=== PATIENT | female | born 1980 | race Caucasian/White ===

== ENCOUNTER → 2016-06-28 | Day surgery (SDC) | payer BC ==
[2016-06-25 10:23] VITALS: Ht 175.3 cm; Wt 177.3 kg
[~2016-06-28] VITALS: Ht 175.3 cm; Wt 177.3 kg
[~2016-06-28] MED LIST: 500ML BSS 0.3ML EPI 1:1000PF IRRIG ONE; ACETAMINOPHEN 325 MG TAB PO PRN; AMVISC PLUS 0.8ML SYRINGE INT OCU ONE; ATOR-24 PO; ATROPINE SULFATE 0.1 MG/ML 5ML SYR IV PRN; BCPILLS PO; BRIMONIDINE TART 0.2% OP SOLN PER DROP CHARGE ONE; BSS FLUSH ONE; CYCL10TA6 PO; ENDOCOAT 0.85ML SYRINGE INT OCU ONE; EpINEphrine INJ 1MG/ML AMP 1 MG/ML AMP ONE; FEXO1TAB46 PO; FRCT/ PO; HYDR25TA4 PO; LACTATED RINGER'S 1000ML 500 ML IV SCH; LEVO25TA5 PO; LIDOCAINE 4% OP SOLN DROP CHARGE ONE; LIDOCAINE 4% OP SOLN DROP CHARGE OPL SCH; LIDOCAINE HCL 1% MPF 2 ML VIAL ONE; LORA-741 PO; METO1TAB69 PO; MIDAZOLAM HCL 1 MG/ML 2ML VIAL ONE; MOXIFLOXACIN OPH SOLN PER DROP CHARGE ONE; OMEP40CA41 PO; OXYC1TAB3 PO; POVIDONE-IODINE OP SOLN 30 ML BTL ONE; PROM25TA16 PO; PROPARACAINE 0.5% OP SOLN PER DROP CHARGE OPL SCH; TOBRAMYCIN/DEXAMETHASONE OPH OINT PER APPLN CHARGE ONE
[2016-06-28] MEDS: TROPICAMIDE 1% OP SOLN PER DROP CHARGE OPL SCH ×2 (07:31→07:36)
[2016-06-28] MEDS: CYCLOPENTOLATE HCL 1% OP SOLN PER DROP CHARGE OPL SCH ×2 (07:32→07:37)
[2016-06-28] MEDS: KETOROLAC 0.5% OP SOLN PER DROP CHARGE OPL SCH ×2 (07:33→07:38)
[2016-06-28] MEDS: MOXIFLOXACIN OPH SOLN PER DROP CHARGE OPL SCH ×2 (07:34→07:44)
[2016-06-28] MEDS: PHENYLEPHRINE HCL 2.5% OP SOLN PER DROP CHARGE OPL SCH ×2 (07:35→07:40)
--- NOTE | 2016-06-28 07:36 | History & Physical Bridge - [place] ---
H&P Re-Evaluation Bridge Note: I have examined the patient, reviewed the History & Physical and in the interval since the performance of the History & Physical I have noted the following changes of clinical significance: No changes noted
--- NOTE | 2016-06-28 08:30 | Discharge Instructions-SurgCtr ---
Discharge Instructions Date of Service Jun 28, 2016. Visit Reason for Visit: Cataract Left Eye Discharge Discharge Diagnosis / Problem: cataract left eye Discharge Goals Goal(s): Improve function Activity Recommendations Activity Limitations: per Instructions/Follow-up section Lifting Limitations: no more than 5 pounds Anesthesia . Post Anesthesia Instructions: If you have had General Anesthesia or IV Sedation: * Do not drive today. * Resume driving when surgeon permits. * Do not make important decisions or sign legal documents today. * Call surgeon for: 1. Temperature elevations greater than 101 degrees F. 2. Uncontrollable pain. 3. Excessive bleeding. 4. Persistent nausea and vomiting. 5. Medication intolerance (nausea, vomiting or rash). * For nausea and vomiting use only clear liquids such as: tea, soda, bouillon until nausea subsides, then gradually increase diet as tolerated. * If you have any concerns or questions, call your surgeon's office. If physician is unavailable and it is an emergency, call 911 or go to the nearest emergency room. . Instructions / Follow-Up Instructions / Follow-Up ACTIVITY RECOMMENDATIONS: * Light activities * You may walk outside, read, watch television. * Mild irritation and blurred vision are common for the first few days, redness around the white part of the eye is common. MEDICATIONS: Resume previous medications unless instructed otherwise by your surgeon. Eye drops (today and tomorrow): Cipro - one drop in operative eye every 2 hours while awake Prednisolone 1% - one drop in operative eye every 2 hours while awake Ketorolac - one drop in operative eye every 2 hours while awake SPECIAL CARE INSTRUCTIONS: * If any problems or concerns, please call Dr. Burgess's office at . * Keep plastic shield taped over eye to sleep at night. * Keep plastic shield taped over eye except to administer eye drops. * Keep plastic shield on until office visit the following day. FOLLOW UP VISIT: Follow-up with Dr. Burgess in the [place] office as scheduled. If not already scheduled, please call the office at . Diet Recommendations Home Diet: resume previous diet Procedures Procedures Performed: Left Cataract Phacoemulsification With Intraocular Lens Implant Pending Studies Studies pending at discharge: no Medical Emergencies . Who to Call and When: Medical Emergencies: If at any time you feel your situation is an emergency, please call 911 immediately. . Non-Emergent Contact Non-Emergency issues call your: Lawyer Criminal . . "Provider Documentation" section prepared by Gianfranco Burgess.
--- NOTE | 2016-06-28 08:31 | [facility] Post Operative Brief Note ---
Immediate Operative Summary Operative Date Jun 28, 2016. Pre-Operative Diagnosis Cataract Left Eye Post-Operative Diagnosis Same Procedure(s) Performed Left Cataract Phacoemulsification With Intraocular Lens Implant Surgeon Dr. Burgess Gift Consultant Surgeon(s) None Estimated Blood Loss 0 Findings psc cataract left eye Specimens None Complication(s) None Disposition Recovery Room / PACU
[2016-06-28 08:32] VITALS: TEMP 36.8
--- NOTE | 2016-06-28 08:34 | Anesthesia Progress Nt - [facility] ---
Anesthesia Post Op Note Date & Time Jun 28, 2016 at 08:34 Vital Signs Pain Intensity: 0 Vital Signs Past 12 Hours Date Time Temp Pulse Resp B/P Pulse Ox O2 Delivery O2 Flow Rate FiO2 06/28/16 07:32 36.8 84 18 152/98 99 Room Air Notes Mental Status: alert / awake / arousable, participated in evaluation Pt Amnestic to Procedure: Yes Nausea / Vomiting: adequately controlled Pain: adequately controlled Airway Patency, RR, SpO2: stable & adequate BP & HR: stable & adequate Hydration State: stable & adequate Anesthetic Complications: no major complications apparent
[2016-06-28 08:55] VITALS: BP 141/82; PULSE 82; O2SAT 96
--- NOTE | 2016-06-28 08:58 | OPERATIVE REPORT ---
DATE OF OPERATION: 06/28/2016 PREOPERATIVE DIAGNOSIS: Posterior subcapsular cataract, left eye. POSTOPERATIVE DIAGNOSIS: Posterior subcapsular cataract, left eye. PROCEDURE: Phacoemulsification cataract extraction with intraocular lens placement, left eye. SURGEON: Dr. Burgess. COMPLICATIONS: None. ESTIMATED BLOOD LOSS: None. ANESTHESIA: Topical with sedation. OPERATION AND FINDINGS: After informed consent was obtained in the holding area the patient was wheeled back to the Operating Room where cardiac monitoring leads and oxygen by nasal cannula was administered by Anesthesia. Gentle IV sedation was given, and the patient's left eye was prepped and draped in usual sterile fashion. A wire lid speculum was placed into the left eye and the operating microscope was swung into position. Using 0.12 forceps and a Supersharp blade a paracentesis port was made 3 o'clock hours away from the 12 o'clock position of patient's left eye. 1% non-preserved Lidocaine was then injected into the anterior chamber for anesthesia. A 2.2 mm keratotome blade was then used to make a shelved clear corneal incision at the 12 o'clock position of her left eye. Amvisc was injected into the anterior chamber and a cystotome and Utrata forceps were used to perform a curvilinear capsulorrhexis. BSS on a hydrodissection cannula was used to hydrodissect the lens nucleus away from the capsular bag. The phacoemulsification handpiece was then used in a stop and chop fashion to remove the lens nucleus. The irrigation and aspiration handpiece was then used to remove the residual cortical material. Amvisc was injected into the capsular bag and anterior chamber and a Bausch \T\ Lomb MX60 20.5 Diopter intraocular lens was injected into the capsular bag. Irrigation and aspiration handpiece was used to remove the residual viscoelastic material. The wounds were hydrated and noted to be watertight. The wire lid speculum was removed from the eye. Vigamox, Brimonidine, and TobraDex ointment were placed on the eye and it was shielded. It should be noted that EndoCoat was used during the case to protect the cornea endothelium. ReSure sealant was placed over the primary incision as well as the paracentesis at the end of the case for extra wound integrity. DISPOSITION: The patient tolerated the procedure well and was wheeled to the post anesthesia care unit in stable condition. I attest to the content of the Intraoperative Record and any orders documented therein. Any exceptions are noted below. I attest to the content of the Intraoperative Record and any orders documented therein. Any exceptio ns are noted below.
== END | disposition home or self-care (01) ==
LOC: X.SURG 06:54
PROVIDERS: ATTEND Ophthalmology
DX: H25.042 Posterior subcapsular polar age-related cataract, left eye (principal); I10 Essential (primary) hypertension; E07.9 Disorder of thyroid, unspecified; E78.00 Pure hypercholesterolemia, unspecified

== ENCOUNTER 2016-09-01 23:56 | Emergency (ER) | payer BC ==
[~2016-09-01] VITALS: Ht 167.6 cm; Wt 190.0 kg
[~2016-09-01 23:56] MED LIST changes: -500ML BSS 0.3ML EPI 1:1000PF IRRIG ONE; -ACETAMINOPHEN 325 MG TAB PO PRN; -AMVISC PLUS 0.8ML SYRINGE INT OCU ONE; -ATROPINE SULFATE 0.1 MG/ML 5ML SYR IV PRN; -BRIMONIDINE TART 0.2% OP SOLN PER DROP CHARGE ONE; -BSS FLUSH ONE; -CYCL10TA6 PO; -ENDOCOAT 0.85ML SYRINGE INT OCU ONE; -EpINEphrine INJ 1MG/ML AMP 1 MG/ML AMP ONE; -LACTATED RINGER'S 1000ML 500 ML IV SCH; -LIDOCAINE 4% OP SOLN DROP CHARGE ONE; -LIDOCAINE 4% OP SOLN DROP CHARGE OPL SCH; -LIDOCAINE HCL 1% MPF 2 ML VIAL ONE; +METO100T44 PO; -METO1TAB69 PO; -MIDAZOLAM HCL 1 MG/ML 2ML VIAL ONE; -MOXIFLOXACIN OPH SOLN PER DROP CHARGE ONE; -OXYC1TAB3 PO; -POVIDONE-IODINE OP SOLN 30 ML BTL ONE; -PROPARACAINE 0.5% OP SOLN PER DROP CHARGE OPL SCH; -TOBRAMYCIN/DEXAMETHASONE OPH OINT PER APPLN CHARGE ONE
[2016-09-02 00:01] VITALS: TEMP 36.7; Ht 167.6 cm; Wt 190.0 kg
[2016-09-02] MEDS ORDERED: HYDROmorphone INJ 1 MG/ML SYR IM STA (00:37)
[2016-09-02] MEDS ORDERED: OXYC1TAB3 PO (01:45)
[2016-09-02] MEDS ORDERED: CYCL10TA6 PO (01:46)
--- NOTE | 2016-09-02 01:46 | EMERGENCY ROOM VISIT NOTE ---
ED Visit Note First contact with patient: 00:12 CHIEF COMPLAINT: Low back pain HISTORY OF PRESENT ILLNESS: This 36-year-old female patient presents to the emergency department ambulatory complaining of pain in the low back which began last week. The patient states that she has a history of chronic low back pain. She has had steroid injections in the back 3 different times in the past 5 years. She states that she has had a gradual onset of worsening low back pain over the past one week. She states the pain has been very severe over the past 2 days. The pain is located in the center of the low back and does not radiate anywhere. She states that occasionally, her feet "fall asleep." She has had significant pain with walking and has been crawling around the house. She denies any numbness or weakness in the legs. The patient notes the pain as sharp and a 10/10. The patient has taken Vicodin for relief of the pain. She states she was previously prescribed this for back and knee pain. The patient denies any loss of control of their bowel or bladder functions. There has been no leg numbness or weakness, and no change in sensation. No nausea or vomiting or abdominal pain. No chest pain or shortness of breath. No dysuria or increased urinary frequency. She denies recent injury to the back. The patient has previously seen Dr. Mayer pain management for her back pain. REVIEW OF SYSTEMS: A review of systems was performed with positives and pertinent negatives listed in the history of present illness. All other systems were reviewed and are negative. ALLERGIES: See EMR MEDICATIONS: See med list PMH: History cholecystectomy SOCIAL HISTORY: The patient lives locally with family. Nonsmoker. PHYSICAL EXAM: VITALS: Vitals are noted on the nurse's note and reviewed by myself. Vital signs stable. GENERAL: This is a 36-year-old morbidly obese female, in no acute distress, nondiaphoretic, well-developed well-nourished. SKIN: The skin was without rashes, erythema, edema, or bruising. Capillary refill less than 2 seconds. NECK: Supple without nuchal rigidity. No cervical spine tenderness. No paraspinous muscle tenderness. HEART: Regular rate and rhythm without murmurs gallops or rubs. LUNGS: Clear to auscultation bilaterally without wheezes, rales or rhonchi. ABDOMEN: Positive bowel sounds x 4. Normal tympanic percussion. Soft, nontender, without masses or organomegaly. Mcadams sign negative. MUSCULOSKELETAL: No muscle atrophy, erythema, or edema noted of the back. There is vague tenderness over the lumbar region. There is no tenderness over the thoracic spine or paraspinous muscles. There are no muscle spasms present. The patient is slow to move around with maximum tenderness with flexion. Negative straight leg raise test. NEURO: Patient was alert and oriented to person place and time. Normal sensation to light and sharp touch. Deep tendon reflexes 2+ in the lower extremities. Dorsalis pedis pulse 2+ bilaterally. Strength 5/5 and equal in the bilateral lower extremities. EMERGENCY DEPARTMENT COURSE: The patient was evaluated as above. There are no neurological findings and nothing to suggest cauda equina syndrome or cord compression. She was treated with 2 mg Dilaudid intramuscularly with significant relief of her pain. The patient was reevaluated and was able to move and sit up without difficulty. I had a lengthy discussion with the patient and her mother regarding her ongoing back pain. I do not feel that imaging will benefit the patient at this time and there is nothing to warrant an emergent MRI. I do feel that the patient should follow-up with pain management, as she had success with injections in the past. I will give her a short course of OxyIR and Flexeril and she was instructed to follow-up with her primary care provider. The [place] prescription drug monitoring program was queried and no red flags were identified. The patient has only received narcotic prescriptions from her primary care provider in the past. The patient was instructed to return here for any worsening or new/concerning symptoms. She verbalized understanding of my assessment and treatment plan and was discharged home in good condition. DIAGNOSIS: Lumbar back pain Problem List Medical Problems: (1) Cholecystectomy Status: Resolved Current/Historical Medications Scheduled Atorvastatin (Lipitor), 40 MG PO QPM Control Pills ( Control Pills), 1 TAB PO QAM Cyclobenzaprine Hcl (Flexeril), 10 MG PO TID Fexofenadine Hcl (Ev), 180 MG PO QAM Hydrochlorothiazide (Hctz), 25 MG PO QAM Levothyroxine Sodium (Levothyroxine Sodium), 1 TAB PO QAM Metoprolol Succ (Toprol Xl) (Toprol-Xl ), 100 MG PO BID Omeprazole (Prilosec), 40 MG PO QAM Scheduled PRN Acetamin/Butalbital/Caffeine (Fioricet), 1-2 TAB PO QID PRN Lorazepam (Ativan), 0.5 MG PO TID PRN Oxycodone Ir (Roxicodone Ir), 1-2 TAB PO Q4H PRN for Pain Promethazine HCl (Promethazine HCl), 25 MG PO TID PRN Allergies Coded Allergies: Iodinated Diagnostic Agents (Verified Allergy, Intermediate, RASH, 06/28/16 ) Azithromycin (Verified Allergy, Mild, RASH, 06/28/16) Chlorpheniramine (Verified Allergy, Mild, DIFFICULTY URINATING, 06/28/16) DIFF. URINATION. NEEDED CATHED Phenylephrine (Verified Allergy, Mild, ., 06/28/16) DIFF. URINATION. NEEDED CATHED Phenylpropanolamine (Verified Allergy, Mild, ., 06/28/16) DIFF. URINATION. NEEDED CATHED Phenyltoloxamine (Verified Allergy, Mild, ., 06/28/16) DIFF. URINATION. NEEDED CATHED Vital Signs Date Time Temp Pulse Resp B/P Pulse Ox O2 Delivery O2 Flow Rate FiO2 09/02/16 01:56 74 20 134/70 95 09/02/16 00:01 36.7 85 20 148/83 98 Room Air Medications Administered Medications (Trade) Dose Ordered Sig/Negin Route Start Time Stop Time Status Last Admin Dose Admin Hydromorphone HCl (Dilaudid Inj) 2 mg NOW STAT IM 09/02/16 00:37 09/02/16 00:39 DC 09/02/16 00:48 2 MG Departure Information Impression Primary Impression: Chronic low back pain Dispostion Home / Self-Care Condition GOOD Prescriptions Cyclobenzaprine Hcl (FLEXERIL) 10 Mg Tab 10 MG PO TID for 5 Days, #15 TAB Prov: Lety Hinds PA-C 09/02/16 Oxycodone Ir (Roxicodone Ir) 5 Mg Tab 1-2 TAB PO Q4H Y for Pain, #24 TAB For Initial Treatment Prov: Lety Hinds PA-C 09/02/16 Referrals Dalton Llanes M.D. (PCP) Patient Instructions [facility] Additional Instructions You have been treated in the Emergency Department for Back Pain. You have received pain medicine in the emergency department which impairs your ability to operate a vehicle. It is illegal for you to drive after receiving these medicines. You have been prescribed Oxy IR to be used for pain control. This is a narcotic medication. You cannot drive or consume alcohol while on this medicine. This medicine should only be used for pain that cannot be controlled with over-the- counter pain medicines. You have been prescribed Flexeril (cyclobenzaprine) 1-2 tabs orally, three times per day. Do NOT exceed 30 mg (6 tabs) per day. Take your first dose at bedtime as it can make you drowsy. Always take all medications as prescribed. For pain control, you can use the following [id number] medicines (if >12 yo): - Regular strength (325mg/tab) Tylenol (acetaminophen) 2 tabs every 4-6 hours as needed. Do not exceed 12 tablets in a 24 hour period. Avoid taking more than 4 grams (4000 mg) of Tylenol per day. This includes any other sources of acetaminophen you may take on a regular basis. - Regular strength (200 mg/tab) Advil (ibuprofen) 1-2 tabs every 4-6 hours as needed. Do not exceed a dose of 3200 mg per day. If this is an acute injury, ice can be applied to the area of pain for the first 3 days to help decrease pain and inflammation. After the first 3 days, a heating pad can be used over the area for continued soothing relief. You should schedule a follow-up appointment in 2-3 days with your Primary Care Provider for further evaluation and treatment of your back pain. Return to the Emergency Department if your current symptoms worsen despite treatment course outlined above, or if you develop any of the following symptoms : intractable pain despite aforementioned treatment course, loss of control of your bowel or bladder, numbness or tingling in your groin, or development of a fever. Problem Qualifiers Primary Impression: Chronic low back pain Back pain laterality: midline Sciatica presence: without sciatica Qualified Codes: M54.5 - Low back pain; G89.29 - Other chronic pain
[2016-09-02 01:56] VITALS: BP 134/70; PULSE 74; O2SAT 95
[2017-02-08] MEDS ORDERED: ZNTT/150 PO (14:47)
[2017-02-08] MEDS ORDERED: NAPR1TAB9 PO (14:47)
[2017-02-08] MEDS ORDERED: ACET-1256 PO (14:47)
== END 2016-09-02 02:01 | disposition home or self-care (01) ==
LOC: C.EDB 23:58 → C.EDC 09-02 02:01
DX: M54.5 Low back pain (principal); G89.29 Other chronic pain; Z90.49 Acquired absence of other specified parts of digestive tract; E66.01 Morbid (severe) obesity due to excess calories; Z68.44 Body mass index [BMI] 60.0-69.9, adult; Z79.3 Long term (current) use of hormonal contraceptives; Z79.899 Other long term (current) drug therapy

== ENCOUNTER → 2016-09-08 | Outpatient (CLI) | payer BC ==
[~2016-09-08] MED LIST changes: +ACET-1256 PO; +CYCL10TA6 PO; +NAPR1TAB9 PO; +OXYC1TAB3 PO; +ZNTT/150 PO
--- NOTE | 2016-09-08 13:35 | DIAGNOSTIC IMAGING REPORT ---
MRI OF THE LUMBAR SPINE WITHOUT IV CONTRAST CLINICAL HISTORY: Chronic low back pain. Lower extremity radiculopathy. COMPARISON STUDY: Abdominal CT dated 10/02/2012. Pelvic ultrasound dated 11/10/2012. TECHNIQUE: MRI of the lumbar spine is performed utilizing various T1 and T2-weighted sequences in the axial and sagittal planes. IV contrast was not administered for this examination. The examination is significantly degraded by open MRI technique. The examination is also degraded by large body habitus. FINDINGS: Lumbar spine: Vertebral body height and alignment are maintained throughout the lumbar spine. There is mild straightening of the lumbar lordosis. The transverse and spinous processes appear intact. There is no evidence of spondylolysis. There is mild degenerative endplate edema seen at L4-L5. Intervertebral discs: There is degenerative disc desiccation with mild loss of height seen at L4-L5 and L5-S1. The remaining discs are normal in height and signal intensity. Spinal cord: The partially imaged spinal cord is normal in morphology and signal intensity. The conus medullaris terminates at the L1-L2 interspace. The nerve roots of the cauda equina are normal in morphology. L1-L2: Unremarkable. L2-L3: Unremarkable. L3-L4: Unremarkable. L4-L5: There is a small posterior disc bulge eccentric to the right with annular fissure. The central canal is widely patent. There is mild right-sided subarticular stenosis. The neural foramina are clear. L5-S1: There is minimal disc bulge eccentric to the right. This causes mild right-sided subarticular stenosis. The central canal and neural foramina are widely patent. Sacrum: The visualized sacrum is normal in morphology and signal intensity. Soft tissues: The paraspinous soft tissues are normal in appearance. The partially imaged retroperitoneal structures are grossly unremarkable but incompletely assessed. A uterine fibroid is suggested. This was better characterized on the 11/10/2012 ultrasound of the pelvis. IMPRESSION: 1. Degenerative disc disease as above with endplate edema at L4-L5. 2. There is no disc herniation, central canal stenosis, or neural foraminal narrowing. Dictated: 09/08/2016 1:23 PM Transcribed: 09/08/2016 1:34 PM Darlene Electronically signed by: Dagoberto Bishop M.D. 09/08/2016 1:43 PM Dictated Date/Time: 09/08/2016 1:23 PM
== END | disposition home or self-care (01) ==
LOC: C.OPENMRI 12:03
PROVIDERS: ATTEND Pain Medicine Interventional Pain Medicine
DX: M54.16 Radiculopathy, lumbar region (principal); M51.36 Other intervertebral disc degeneration, lumbar region